=== PATIENT | female | born 1975 | race Caucasian/White ===

== ENCOUNTER 2018-10-29 13:31 | Outpatient (CLI) | payer BC, SELFPAY ==
[2018-10-29 13:54] LABS: Bilirubin Negative (Negative); Blood Trace-intact (Negative); Clarity Clear; Glucose Negative (Negative); Ketones Negative (Negative); Leukocyte Esterase Small (Negative); Nitrite Negative (Negative); pH 6.5 (5-8)
[2018-10-29 14:54] LABS: Bacteria Negative HPF (Negative); C & S Indicated? Yes; Casts Negative LPF (Negative); Crystals Negative HPF (Negative); Epithelial Cells Few HPF (Negative); Mucus Negative (Negative); RBC 20-50 (0-2)
== END 2018-10-29 13:51 ==
PROVIDERS: PCP Nurse Practitioner Family; Visit Provider Nurse Practitioner Family
DX: R30.0 Dysuria (principal)
CPT/HCPCS: 81003; 81015; 87086; 87186

== ENCOUNTER 2019-01-03 13:34 | Outpatient (REF) | payer BC, SELFPAY ==
--- NOTE | 2019-01-03 13:10 | PAPFT_PTH ---
PATIENT: VALENTIN MATHEWS LOC: [facility] U#:[id number] AGE/SX: 43/F ROOM: RE01/03/[address]: Sera Greenberg NP : 1975 BED: DIS: 01/03/2019 SPEC #: [id number] RECD: 01/03/19 17:31 STATUS: NIGEL REDDY #: [id number] CRISTINE: 01/03/19 13:[address]: Sera Greenberg NP DEPT: [facility] Cytology RECD BY: Daniela Damon ENTERED: 01/03/19 17:31 SP TYPE: PAPFT CARLITOS DR: Sarah Maldonado, TIMOTHY Tissues: 1 - CX/ENDOCX FOR PAP SMEARS Procedures: PAP THIN PREP/UVM Screening HPV DNA PROBE Comments: [id number]
== END 2019-01-03 13:54 ==
LOC: LBN 13:34
PROVIDERS: PCP Nurse Practitioner Family; Visit Provider Nurse Practitioner Women's Health
DX: Z12.4 Encounter for screening for malignant neoplasm of cervix (principal); Z11.51 Encounter for screening for human papillomavirus (HPV)
CPT/HCPCS: 88142; 87624

== ENCOUNTER 2019-02-06 00:29 | Outpatient (CLI) | payer BC, SELFPAY ==
--- NOTE | 2019-02-06 15:38 | DI.MAMMO_ITS ---
SYMPTOMS/DIAGNOSIS: SCREENING, Z12.31 MAMMOGRAMS: Mammograms were interpreted according to the usual protocol including computer analysis with CAD system, tomosynthesis and C view imaging. The breast tissue is heterogeneously radiodense, which lowers the sensitivity of the study. There is no dominant mass. There are no suspicious calcifications. When compared with a prior examination, there is a question regarding interval development of a region of nodularity in inferolateral portion of the right breast. Further assessment of this patient with a mediolateral compression spot image and ultrasound is recommended. SUMMARY: Category 0. Breast density category C. [facility] ASSESSMENT OF FINDINGS: Incomplete: Needs additional imaging evaluation. Category 0. Patient will receive a letter notifying them of these results. Bi-RADS category C. The breasts are heterogeneously dense, which may obscure small masses.
== END 2019-02-06 00:49 ==
PROVIDERS: PCP Nurse Practitioner Family; Visit Provider Nurse Practitioner Women's Health
DX: R92.8 Other abnormal and inconclusive findings on diagnostic imaging of breast
CPT/HCPCS: 77063; 77067

== ENCOUNTER 2019-02-13 00:54 | Outpatient (CLI) | payer BC, SELFPAY ==
--- NOTE | 2019-02-13 09:55 | DI.MAMMO_ITS ---
SYMPTOM/DIAGNOSIS: F/U MAMMO, ? DEVELOPMENT OF NODULARITY RIGHT BREAST ADDITIONAL VIEWS: Additional images are interpreted according to the usual protocol including tomosynthesis and 2D imaging. Spot compression views with tomography were performed of the posterior right breast in the MLO projection. No persistent abnormality is seen. The findings are consistent with overlying fibroglandular tissue. IMPRESSION: Category 1, negative mammogram. Yearly screening mammography is recommended. [facility] ASSESSMENT OF FINDINGS: Negative. Category 1. Patient will receive a letter notifying them of these results. Bi-RADS category C. The breasts are heterogeneously dense, which may obscure small masses.
== END 2019-02-13 01:14 ==
PROVIDERS: PCP Nurse Practitioner Family; Visit Provider Nurse Practitioner Women's Health
DX: Z12.31 Encounter for screening mammogram for malignant neoplasm of breast (principal); R92.8 Other abnormal and inconclusive findings on diagnostic imaging of breast; N64.59 Other signs and symptoms in breast
CPT/HCPCS: 77063; 77067

== ENCOUNTER 2019-11-25 01:49 | Outpatient (CLI) | payer BC, SELFPAY ==
[2019-11-25 13:18] LABS: Hemoglobin A1C 5.6 % (3.8-5.6)
[2019-11-25 14:16] LABS: Anion Gap 10.3 mmol/L (3-11); BUN 15 mg/dL (7-18); CO2 26.7 mmol/L (21.0-32.0); CREATININE 0.85 mg/dL (0.55-1.02); Calcium 8.7 mg/dL (8.5-10.1); Calculated LDL 130 mg/dL (<100); Chloride 104 mmol/L (98-107); Cholesterol 222 mg/dL (<200); Glucose 107 mg/dL (74-106); HDL Cholesterol 62 mg/dL (40-60); Sodium 141 mmol/L (136-145); Triglyceride 154 mg/dL (<150)
== END 2019-11-25 02:09 ==
PROVIDERS: PCP Nurse Practitioner Family; Visit Provider Nurse Practitioner Family
DX: Z00.00 Encounter for general adult medical examination without abnormal findings (principal); Z13.220 Encounter for screening for lipoid disorders; Z13.1 Encounter for screening for diabetes mellitus
CPT/HCPCS: 80048; 80061; 83036